=== PATIENT | male | born 1970 | race Caucasian/White ===

== ENCOUNTER 2017-07-25 11:49 | Emergency (ER) | payer BC ==
[2017-07-25 12:49] VITALS: BP 130/78
--- NOTE | 2017-07-25 12:59 | UC ---
Skin Complaint HPI - HPI Summary HPI Summary: 47 y/o male presents to the urgent care c/o tick bite in his RT buttocks he noticed yesterday while he was corking on the deck. He thinks tick still there. His tried to pulled out, but she thinks he still has some remnants. Pt denies fever, chills, headache, joint pains, chest pain, SOB, abdominal pain, N/ V/D. - History of Current Complaint Chief Complaint: UCGeneralIllness Time Seen by Provider: 07/25/17 12:28 Stated Complaint: TICK Hx Obtained From: Patient Onset/Duration: Sudden Onset, Lasting Days - 1 day, Still Present Skin Exposure Onset/Duration: Days Ago - 1 day Timing: Constant Onset Severity: Mild Current Severity: Mild Pain Intensity: 2 - at touch Pain Scale Used: 0-10 Numeric Location: Discrete - Rt buttocks Character: Redness Aggravating Factor(s): Touch Alleviating Factor(s): Nothing Associated Signs & Symptoms: Positive: Negative Related History: Possible Reaction to: Insect - Allergy/Home Medications Allergies/Adverse Reactions: Allergies Allergy/AdvReac Type Severity Reaction Status Date / Time No Known Allergies Allergy Verified 07/25/17 12:45 Home Medications: Home Medications NK [No Home Medications Reported] 07/25/17 [History Confirmed 07/25/17] Review of Systems Constitutional: Negative Skin: Rash - RT buttocks s/p tick bite Eyes: Negative ENT: Negative Respiratory: Negative Cardiovascular: Negative Gastrointestinal: Negative Genitourinary: Negative Motor: Negative Neurovascular: Negative Musculoskeletal: Negative Neurological: Negative Psychological: Negative Is Patient Immunocompromised?: No All Other Systems Reviewed And Are Negative: Yes PMH/Surg Hx/FS Hx/Imm Hx Previously Healthy: Yes Cardiovascular History: Hypertension - diet controlled - Surgical History Surgical History: None - Family History Known Family History: Positive: Cardiac Disease, Hypertension - Social History Occupation: Employed Full-time Lives: With Family Alcohol Use: Daily Alcohol Amount: 2 beers daily Substance Use Type: None Smoking Status (MU): Never Smoked Tobacco Physical Exam - Summary Physical Exam Summary: Vital Signs Reviewed: Yes General: well developed, well nourished male sitting in the examining table w/ o any apparent distress. Eyes: Positive: Conjunctiva Clear - PERRLA, EOMI ENT: Positive: Normal ENT inspection, Hearing grossly normal, Pharynx normal, TMs normal Neck: Positive: Supple, Nontender, No Lymphadenopathy Respiratory: Positive: Chest nontender, Lungs clear, Normal breath sounds Cardiovascular: Positive: RRR, No Murmur, Pulses Normal Abdomen Description: Positive: Nontender, No Organomegaly, Soft. Negative: CVA Tenderness (R), CVA Tenderness (L) Bowel Sounds: Positive: Present Musculoskeletal: Positive: Strength Intact, ROM Intact, No Edema Neurological Exam: Normal Psychological Exam: Normal Skin: Positive: rashes - medial aspect of RT buttocks with a tick bite with surrounding erythema, non tender to palpation. tick no longer present, no swelling or drainage observed Triage Information Reviewed: Yes Vital Signs: Initial Vital Signs Temp 98.6 F 07/25/17 12:42 Pulse 82 07/25/17 12:42 Resp 16 07/25/17 12:42 BP 130/78 07/25/17 12:42 Pulse Ox 98 07/25/17 12:42 Course/Dx - Course Course Of Treatment: 47 y/o male presents to the urgent care c/o tick bite in his RT buttocks he noticed yesterday while he was corking on the deck. He thinks tick still there. His tried to pulled out, but she thinks he still has some remnants. Pt denies fever, chills, headache, joint pains, chest pain, SOB, abdominal pain, N/V/D.Hx obtained. Pt w/ medial aspect of RT buttocks with a tick bite with surrounding erythema, non tender to palpation. tick no longer present, no swelling or drainage observed. Area cleaned w/ alcohol; swabs and bacitracin topical oint applied. Antibiotic prophylaxis with Doxycycline given to the patient to prevent lyme Disease.. Pt tolerated well medication. Pt advised to observe the area for the development or Erythema Migrans for upto 30 days following exposure. Advised if he develops fever or erythema Migrans to return to the clinic or PCP for further treatment .Pt understood and agreed with plan of care - Differential Diagnoses - Skin Complaint Differential Diagnoses: Abscess, Local Allergic Reaction, MRSA, Tick Born Illness - Diagnoses Provider Diagnoses: 1- Tick bite on the RT gluteus Discharge - Sign-Out/Discharge Documenting (check all that apply): Discharge/Admit/Transfer - D/C home - Discharge Plan Condition: Stable Disposition: HOME Patient Education Materials: Tick Bite (ED) Referrals: [facility] [Outside] - 2 Weeks Yahaira FIELD,Austin Emmanuel [Medical Doctor] - If Needed Non Staff,Doctor [Primary Care Provider] - Additional Instructions: 1- Please observe the area for the development or Erythema Migrans for upto 30 days following exposure. Components of the tick saliva can cause transient erythema that should not be confused with Erythema Migrans. If you develop the bull's eye rash, fever, joint pains please return to the urgent care or f/u with your PCP for further management. 2-Antibiotic prophylaxis with Doxycycline was given to you today to prevent lyme Disease. Lyme serology can be drawn in 2 weeks with your PCP to r/o Lyme disease since there is probability of negative results at early exposure. - Billing Disposition and Condition Condition: STABLE Disposition: HOME
[2017-07-25] MEDS ORDERED: DOXYcycline CAP(*) 100 MG PO ONE (13:04)
== END 2017-07-25 13:14 | disposition home or self-care (01) ==
LOC: UCCORT 11:49
DX: S30.860A Insect bite (nonvenomous) of lower back and pelvis, initial encounter (principal); W57.XXXA Bitten or stung by nonvenomous insect and other nonvenomous arthropods, initial encounter; Y93.9 Activity, unspecified; Y92.9 Unspecified place or not applicable
CPT/HCPCS: 99212; A9270-GY; G0463